=== PATIENT | male | born 1975 | race Caucasian/White ===

== ENCOUNTER 2016-08-24 11:09 | Inpatient (IN) | payer BC ==
[~2016-08-24] VITALS: Ht 170.1 cm; Wt 73.1 kg
[~2016-08-24 11:09] MED LIST: DOXYCYCLINE MO100 MG PO; MEDROL DOSEPAK4 MG PO; NAPROSYN500 MG PO; TRAMADOL HCL50 MG PO; VIBRAMYCIN100 MG PO
[2016-08-24 11:25] VITALS: BP 138/93
[2016-08-24] MEDS ORDERED: IMODIUM A-D2 M2 PO (11:25)
[2016-08-24 11:51] LABS: BASO # 0.1 10*3/uL (0.0-0.1); BASO % 0.6 % (0.0-1.0); EOS # 0.3 10*3/uL (0.0-0.4); EOS % 2.9 % (1.0-4.0); HEMATOCRIT 47.3 % (42.0-52.0); HEMOGLOBIN 16.8 g/dl (14.0-18.0); LYMPH % 9.8 % (27.0-41.0); MEAN CELL VOLUME 92.6 fl (80.0-94.0); MEAN CORPUSCULAR HGB 32.9 pg (27.0-31.0); MEAN CORPUSCULAR HGB CONC 35.5 g/dl (33.0-37.0); MEAN PLATELET VOLUME 8.4 fl (9.6-12.3); MONO # 0.8 10*3/uL (0.1-1.0); MONO % 7.7 % (3.0-9.0); NEUT # 7.8 10*3/uL (2.3-7.9); NEUT % 78.6 % (47.0-73.0); PLATELET COUNT AUTOMATED 298 10*3/uL (130-400); RED BLOOD COUNT 5.11 10*6/uL (4.50-5.90); WHITE BLOOD COUNT 9.9 10*3/uL (4.8-10.8)
[2016-08-24 12:05] LABS: PROTHROMBIN TIME 10.1 SECONDS (9.0-12.4)
[2016-08-24 12:07] LABS: ALKALINE PHOSPHATASE 84 U/L (45-117); BILIRUBIN, TOTAL 0.6 mg/dl (0.2-1.0); BUN 8 mg/dl (7-24); C-REACTIVE PROTEIN 1.77 MG/DL (0-0.3); CARBON DIOXIDE 24 mmol/L (21-32); CHLORIDE 105 mmol/L (98-107); CPK 77 U/L (39-308); EST GLOM FILT AFRICAN AMERICAN > 60 ml/min; GLUCOSE 110 mg/dL (65-99); MAGNESIUM 2.2 mg/dL (1.5-2.1); POTASSIUM 4.2 mmol/L (3.5-5.1); SGOT/AST 25 IU/L (3-35); SGPT/ALT 33 U/L (12-78); SODIUM 141 mmol/L (136-145); TOTAL PROTEIN 7.4 gm/dL (6.4-8.2); TROPONIN I < 0.015 ng/ml (<0.045)
[2016-08-24 12:54] VITALS: BP 127/76
[2016-08-24 12:57] LABS: BILIRUBIN NEGATIVE (NEGATIVE); BLOOD NEGATIVE (NEGATIVE); CLARITY CLEAR (CLEAR); COLOR YELLOW (YELLOW); GLUCOSE NEGATIVE (NEGATIVE); KETONE NEGATIVE (NEGATIVE); LEUKO ESTERASE NEGATIVE (NEGATIVE); NITRITE NEGATIVE (NEGATIVE); PROTEIN NEGATIVE (NEGATIVE); UROBILINOGEN 0.2 E.U./dl (0.2-1.0)
[2016-08-24 13:04] LABS: BACTERIA TRACE; EPITHELIAL CELLS 0-2; MUCOUS 1+; URINE REFLEX COMMENT NO (NO); WBC 0-2 wbc/hpf (0-5)
[2016-08-24 13:56] VITALS: BP 120/84
[2016-08-24 16:00] VITALS: BP 145/95
[2016-08-24 20:00] VITALS: BP 135/86
[2016-08-25] VITALS: BP 133/89
[2016-08-25 06:14] LABS: BASO # 0.1 10*3/uL (0.0-0.1); BASO % 0.8 % (0.0-1.0); EOS # 0.4 10*3/uL (0.0-0.4); EOS % 5.7 % (1.0-4.0); LYMPH # 1.6 10*3/uL (1.3-4.4); MEAN CELL VOLUME 94.9 fl (80.0-94.0); MEAN CORPUSCULAR HGB 32.6 pg (27.0-31.0); MEAN CORPUSCULAR HGB CONC 34.3 g/dl (33.0-37.0); MEAN PLATELET VOLUME 8.6 fl (9.6-12.3); MONO # 0.7 10*3/uL (0.1-1.0); MONO % 10.6 % (3.0-9.0); NEUT # 3.7 10*3/uL (2.3-7.9); NEUT % 57.4 % (47.0-73.0); PLATELET COUNT AUTOMATED 248 10*3/uL (130-400); RED BLOOD COUNT 4.33 10*6/uL (4.50-5.90); WHITE BLOOD COUNT 6.5 10*3/uL (4.8-10.8)
[2016-08-25 06:19] LABS: HEMATOCRIT 41.1 % (42.0-52.0); HEMOGLOBIN 14.1 g/dl (14.0-18.0)
[2016-08-25 06:29] LABS: HEMOGLOBIN A1c 5.1 % (4.8-5.6)
[2016-08-25 06:44] LABS: ALBUMIN 3.1 gm/dl (3.1-4.5); BILIRUBIN, TOTAL 0.8 mg/dl (0.2-1.0); BUN 7 mg/dl (7-24); CARBON DIOXIDE 27 mmol/L (21-32); CHLORIDE 108 mmol/L (98-107); CHOLESTEROL 149 mg/dL (<200); EST GLOM FILT AFRICAN AMERICAN > 60 ml/min; GLUCOSE 85 mg/dL (65-99); MAGNESIUM 2.1 mg/dL (1.5-2.1); PHOSPHOROUS 2.8 mg/dL (2.5-4.9); POTASSIUM 3.8 mmol/L (3.5-5.1); SGOT/AST 19 IU/L (3-35); SGPT/ALT 24 U/L (12-78); SODIUM 143 mmol/L (136-145); TOTAL PROTEIN 5.8 gm/dL (6.4-8.2); TRIGLYCERIDES 145 mg/dl (<150); VLDL CHOLESTEROL 29 mg/dL (6-40)
[2016-08-25 06:45] LABS: PROTHROMBIN TIME 10.1 SECONDS (9.0-12.4)
[2016-08-25 06:51] LABS: ALKALINE PHOSPHATASE 68 U/L (45-117); FREE T4 0.82 ng/dl (0.76-1.46); HDL CHOLESTEROL 56 mg/dl (40-60); LDL CHOLESTEROL 64 mg/dL (9-159)
[2016-08-25 07:31] LABS: VITAMIN D, 25-HYDROXY 7.5 ng/mL (30-100)
[2016-08-25 07:32] LABS: FOLIC ACID 6.39 ng/mL (>5.38)
[2016-08-25 08:00] VITALS: BP 145/87
[2016-08-25] MEDS ORDERED: CIPRO500 MG PO (10:29)
[2016-08-25] MEDS ORDERED: ACIDOPHILUS1 EAC3 PO (10:29)
[2016-08-25] MEDS ORDERED: D-1000 185 MG-11 TAB PO (10:29)
[2016-08-25] MEDS ORDERED: FLAGYL500 MG PO (10:29)
[2016-08-25 12:00] VITALS: BP 138/85
== END 2016-08-25 12:49 | disposition home or self-care (01) | DRG 872 ==
LOC: ED 11:09 → EDHOLD 13:01 → 4E 13:01
PROVIDERS: Family Medicine; Student in an Organized Health Care Education/Training Program
DX: A41.9 Sepsis, unspecified organism (principal); K57.92 Diverticulitis of intestine, part unspecified, without perforation or abscess without bleeding; F17.210 Nicotine dependence, cigarettes, uncomplicated; F10.20 Alcohol dependence, uncomplicated; Z82.49 Family history of ischemic heart disease and other diseases of the circulatory system; Z88.2 Allergy status to sulfonamides; Z88.6 Allergy status to analgesic agent; Z88.8 Allergy status to other drugs, medicaments and biological substances; Z80.0 Family history of malignant neoplasm of digestive organs; Z82.3 Family history of stroke; Z79.899 Other long term (current) drug therapy; Z81.8 Family history of other mental and behavioral disorders

== ENCOUNTER 2017-02-27 10:43 | Inpatient (IN) | payer BC ==
[~2017-02-27] VITALS: Ht 170.1 cm; Wt 70.9 kg
[~2017-02-27 10:43] MED LIST changes: +ACIDOPHILUS1 EAC3 PO; +CIPRO500 MG PO; +D-1000 185 MG-11 TAB PO; +FLAGYL500 MG PO; +IMODIUM A-D2 M2 PO
[2017-02-27 10:48] VITALS: BP 130/75
[2017-02-27 11:16] LABS: BASO % 0.3 % (0.0-1.0); EOS # 0.2 10*3/uL (0.0-0.4); EOS % 2.3 % (1.0-4.0); HEMATOCRIT 46.1 % (42.0-52.0); HEMOGLOBIN 16.2 g/dl (14.0-18.0); LYMPH # 1.1 10*3/uL (1.3-4.4); LYMPH % 11.6 % (27.0-41.0); MEAN CELL VOLUME 91.8 fl (80.0-94.0); MEAN CORPUSCULAR HGB 32.3 pg (27.0-31.0); MEAN CORPUSCULAR HGB CONC 35.1 g/dl (33.0-37.0); MEAN PLATELET VOLUME 8.2 fl (9.6-12.3); MONO # 0.8 10*3/uL (0.1-1.0); NEUT # 7.3 10*3/uL (2.3-7.9); NEUT % 77.4 % (47.0-73.0); PLATELET COUNT AUTOMATED 320 10*3/uL (130-400); RED BLOOD COUNT 5.02 10*6/uL (4.50-5.90); RED CELL DISTRI WIDTH 12.3 % (0-14.5); WHITE BLOOD COUNT 9.5 10*3/uL (4.8-10.8)
--- NOTE | 2017-02-27 11:27 | NUR ---
PT VOICED PAIN RELIEF FROM [facility].
[2017-02-27 11:31] LABS: ALBUMIN 4.3 gm/dl (3.1-4.5); ALKALINE PHOSPHATASE 91 U/L (45-117); BUN 9 mg/dl (7-24); CHLORIDE 101 mmol/L (98-107); CREATININE 0.87 mg/dL (0.70-1.30); POTASSIUM 3.8 mmol/L (3.5-5.1); SGOT/AST 21 IU/L (3-35); SGPT/ALT 32 U/L (12-78); SODIUM 137 mmol/L (136-145); TOTAL PROTEIN 7.9 gm/dL (6.4-8.2)
[2017-02-27 13:40] VITALS: BP 128/80
[2017-02-27 14:30] VITALS: BP 128/80
--- NOTE | 2017-02-27 14:30 | NUR ---
Time: 1429 A 41 year old MALE admitted to 4E under services of CINDA ARIAS DO. Pt. arrived via wheel chair from ER. Chief complaint: LEFT LOWER QUADRANT ABDOMINAL PAIN SINCE EATING CORN LAST NIGHT (HX OF DIVERTICULOSIS). ADINA POP
[2017-02-27] MEDS ORDERED: ACIDOPHILUS LA1 EACH PO (14:45)
[2017-02-27] MEDS ORDERED: GUAIFENESIN600 MG PO (14:46)
--- NOTE | 2017-02-27 14:46 | NUR ---
PATIENT REPORTS TAKING TWO HOME OTC MEDS; MED REC UPDATED PER HIS INFORMATION PROVIDED.
[2017-02-27 16:00] VITALS: BP 122/76
[2017-02-27 20:00] VITALS: BP 118/77
--- NOTE | 2017-02-27 20:16 | NUR ---
PATIENT RESTING IN BED WITH NO S/S OF DISTRESS. WATCHING TV. CANDY ON BEDSIDE TABLE. ENCOURAGED TO ONLY HAVE LIQUIDS PER DR ORDER. BED IN LOWEST POSITION, CALL LIGHT IN REACH
[2017-02-28] VITALS: BP 132/84
[2017-02-28 06:57] LABS: BASO % 0.6 % (0.0-1.0); EOS # 0.3 10*3/uL (0.0-0.4); EOS % 6.1 % (1.0-4.0); LYMPH # 1.2 10*3/uL (1.3-4.4); LYMPH % 22.8 % (27.0-41.0); MEAN CELL VOLUME 93.1 fl (80.0-94.0); MEAN CORPUSCULAR HGB 32.4 pg (27.0-31.0); MEAN CORPUSCULAR HGB CONC 34.8 g/dl (33.0-37.0); MEAN PLATELET VOLUME 8.3 fl (9.6-12.3); MONO # 0.5 10*3/uL (0.1-1.0); MONO % 10.1 % (3.0-9.0); NEUT # 3.2 10*3/uL (2.3-7.9); NEUT % 59.8 % (47.0-73.0); PLATELET COUNT AUTOMATED 233 10*3/uL (130-400); RED BLOOD COUNT 4.04 10*6/uL (4.50-5.90); RED CELL DISTRI WIDTH 12.2 % (0-14.5); WHITE BLOOD COUNT 5.3 10*3/uL (4.8-10.8)
[2017-02-28 06:58] LABS: HEMATOCRIT 37.6 % (42.0-52.0); HEMOGLOBIN 13.1 g/dl (14.0-18.0)
[2017-02-28 07:07] LABS: ACT PARTIAL THROMBO TIME 29.5 SECONDS (20.8-31.5); INTERNATIONAL NORM RATIO 0.9 (2.0-3.5)
[2017-02-28 07:41] LABS: ALBUMIN 2.9 gm/dl (3.1-4.5); ALKALINE PHOSPHATASE 69 U/L (45-117); BUN 6 mg/dl (7-24); CHLORIDE 108 mmol/L (98-107); CREATININE 0.82 mg/dL (0.70-1.30); FREE T4 0.96 ng/dl (0.76-1.46); MAGNESIUM 2.2 mg/dL (1.5-2.1); PHOSPHOROUS 2.6 mg/dL (2.5-4.9); POTASSIUM 3.5 mmol/L (3.5-5.1); SGOT/AST 14 IU/L (3-35); SGPT/ALT 27 U/L (12-78); SODIUM 140 mmol/L (136-145); TOTAL PROTEIN 6.1 gm/dL (6.4-8.2)
[2017-02-28 08:00] VITALS: BP 122/72
--- NOTE | 2017-02-28 08:33 | NUR ---
Shift chart check completed.
[2017-02-28 08:41] LABS: VITAMIN D, 25-HYDROXY 18.2 ng/mL (30-100)
[2017-02-28] MEDS ORDERED: FLAGYL500 MG PO (11:44)
[2017-02-28] MEDS ORDERED: B12,B-12,B 12500 MC1 PO (11:44)
[2017-02-28] MEDS ORDERED: VITAMIN D31000 UNI1 PO (11:44)
[2017-02-28] MEDS ORDERED: CIPRO500 MG PO (11:44)
--- NOTE | 2017-02-28 12:10 | NUR ---
Discharge instructions reviewed with patient/family. Patient receptive and verbalizes understanding. Follow-up care understood. Written instructions given to patient/family. pt understands rx sent to pharmacy and to [facility] pick[facility]. no questioins at this time GLENDA PATEL
== END 2017-02-28 12:10 | disposition home or self-care (01) | DRG 872 ==
LOC: ED 10:43 → EDHOLD 12:23 → 4E 12:45
PROVIDERS: Internal Medicine; Nurse Practitioner Family; ADMIT Internal Medicine
DX: A41.9 Sepsis, unspecified organism (principal); K57.92 Diverticulitis of intestine, part unspecified, without perforation or abscess without bleeding; K76.9 Liver disease, unspecified; R03.0 Elevated blood-pressure reading, without diagnosis of hypertension; R00.0 Tachycardia, unspecified; R73.9 Hyperglycemia, unspecified; Z88.6 Allergy status to analgesic agent; F17.210 Nicotine dependence, cigarettes, uncomplicated; Z88.2 Allergy status to sulfonamides; Z88.8 Allergy status to other drugs, medicaments and biological substances; Z79.899 Other long term (current) drug therapy; Z82.49 Family history of ischemic heart disease and other diseases of the circulatory system; Z81.8 Family history of other mental and behavioral disorders; Z80.8 Family history of malignant neoplasm of other organs or systems; Z82.3 Family history of stroke

== ENCOUNTER 2017-03-19 19:45 | Emergency (ER) | payer BC ==
[~2017-03-19] VITALS: Wt 68.0 kg
[~2017-03-19 19:45] MED LIST changes: +ACIDOPHILUS LA1 EACH PO; +B12,B-12,B 12500 MC1 PO; +GUAIFENESIN600 MG PO; +VITAMIN D31000 UNI1 PO
[2017-03-19 19:49] VITALS: BP 129/85
[2017-03-19 20:12] LABS: BILIRUBIN 1+ (NEGATIVE); BLOOD 1+ (NEGATIVE); CLARITY CLEAR (CLEAR); COLOR YELLOW (YELLOW); GLUCOSE NEGATIVE (NEGATIVE); KETONE NEGATIVE (NEGATIVE); LEUKO ESTERASE NEGATIVE (NEGATIVE); NITRITE NEGATIVE (NEGATIVE); PH 5.5 (5.0-9.0); SPECIFIC GRAVITY >= 1.030 (1.005-1.030); UROBILINOGEN 0.2 E.U./dl (0.2-1.0)
[2017-03-19 20:24] LABS: BACTERIA TRACE; EPITHELIAL CELLS 0-2; MUCOUS 4+
[2017-03-19 20:27] LABS: BASO % 0.3 % (0.0-1.0); EOS % 0.2 % (1.0-4.0); HEMATOCRIT 46.9 % (42.0-52.0); HEMOGLOBIN 16.7 g/dl (14.0-18.0); LYMPH # 1.1 10*3/uL (1.3-4.4); LYMPH % 11.8 % (27.0-41.0); MEAN CELL VOLUME 89.7 fl (80.0-94.0); MEAN CORPUSCULAR HGB 31.9 pg (27.0-31.0); MEAN CORPUSCULAR HGB CONC 35.6 g/dl (33.0-37.0); MEAN PLATELET VOLUME 8.5 fl (9.6-12.3); MONO # 0.8 10*3/uL (0.1-1.0); MONO % 8.8 % (3.0-9.0); NEUT # 7.2 10*3/uL (2.3-7.9); NEUT % 78.7 % (47.0-73.0); PLATELET COUNT AUTOMATED 317 10*3/uL (130-400); RED BLOOD COUNT 5.23 10*6/uL (4.50-5.90); RED CELL DISTRI WIDTH 11.9 % (0-14.5); WHITE BLOOD COUNT 9.2 10*3/uL (4.8-10.8)
[2017-03-19 20:42] LABS: ALBUMIN 3.5 gm/dl (3.1-4.5); ALKALINE PHOSPHATASE 58 U/L (45-117); BUN 8 mg/dl (7-24); CHLORIDE 98 mmol/L (98-107); CREATININE 0.73 mg/dL (0.70-1.30); POTASSIUM 2.7 mmol/L (3.5-5.1); SGOT/AST 16 IU/L (3-35); SGPT/ALT 16 U/L (12-78); SODIUM 134 mmol/L (136-145); TOTAL PROTEIN 7.6 gm/dL (6.4-8.2)
[2017-03-19] MEDS ORDERED: Zofran4 MG PO (22:00)
[2017-03-19] MEDS ORDERED: PEPCID20 MG PO (22:00)
== END 2017-03-19 22:04 | disposition home or self-care (01) ==
LOC: ED 19:45
PROVIDERS: Emergency Medicine; Physician Assistant
DX: K52.9 Noninfective gastroenteritis and colitis, unspecified (principal); R10.84 Generalized abdominal pain; F17.200 Nicotine dependence, unspecified, uncomplicated; Z79.899 Other long term (current) drug therapy; Z88.5 Allergy status to narcotic agent; Z88.1 Allergy status to other antibiotic agents; Z88.8 Allergy status to other drugs, medicaments and biological substances

== ENCOUNTER → 2019-06-02 | Outpatient (CLI) | payer BC ==
[~2019-06-02] MED LIST changes: +PEPCID20 MG PO; +Zofran4 MG PO
== END | disposition home or self-care (01) ==
LOC: US 09:22
DX: K40.90 Unilateral inguinal hernia, without obstruction or gangrene, not specified as recurrent (principal)

== ENCOUNTER → 2019-06-17 | Outpatient (CLI) | payer BC | END | disposition home or self-care (01) | LOC: CT 14:32 | DX: K76.9 Liver disease, unspecified (principal) ==

== ENCOUNTER → 2021-05-20 | Outpatient (CLI) | payer BC | END | disposition home or self-care (01) | LOC: RAD 11:23 | PROVIDERS: ATTEND Nurse Practitioner Family | DX: U07.1 COVID-19 (principal); J12.82 Pneumonia due to coronavirus disease 2019 ==

== ENCOUNTER → 2021-06-21 | Outpatient (CLI) | payer BC | END | disposition home or self-care (01) | LOC: RAD 11:52 | PROVIDERS: ATTEND Nurse Practitioner Family | DX: R05.9 Cough, unspecified (principal); I10 Essential (primary) hypertension; E53.8 Deficiency of other specified B group vitamins; Z72.0 Tobacco use ==

== ENCOUNTER → 2022-10-14 | Outpatient (CLI) | payer OTHER ==
[2022-10-14 11:15] LABS: BASO # 0.1 10*3/uL (0.0-0.1); EOS # 0.1 10*3/uL (0.0-0.4); EOS % 2.3 % (1.0-4.0); HEMATOCRIT 47.8 % (42.0-52.0); LYMPH # 1.1 10*3/uL (1.3-4.4); LYMPH % 22.7 % (27.0-41.0); MEAN CELL VOLUME 91.6 fl (80.0-94.0); MEAN CORPUSCULAR HGB 32.2 pg (27.0-31.0); MEAN CORPUSCULAR HGB CONC 35.1 g/dl (33.0-37.0); MEAN PLATELET VOLUME 7.9 fl (9.6-12.3); MONO # 0.4 10*3/uL (0.1-1.0); MONO % 8.4 % (3.0-9.0); NEUT # 3.2 10*3/uL (2.3-7.9); PLATELET COUNT AUTOMATED 306 10*3/uL (130-400); RED BLOOD COUNT 5.22 10*6/uL (4.50-5.90); RED CELL DISTRI WIDTH 11.9 % (0-14.5); WHITE BLOOD COUNT 4.9 10*3/uL (4.8-10.8)
[2022-10-14 11:52] LABS: ALKALINE PHOSPHATASE 101 U/L (46-116); BUN 11 mg/dl (9-23); CHLORIDE 98 mmol/L (98-107); CHOLESTEROL 147 mg/dL (<200); LDL CHOLESTEROL 35 mg/dL (9-159); POTASSIUM 3.2 mmol/L (3.4-5.1); SGPT/ALT 34 U/L (10-49); THYROID STIM HORMONE (HS) 1.369 uIU/ml (0.550-4.780); TOTAL PROTEIN 7.1 gm/dL (6.0-8.0); TRIGLYCERIDES 273 mg/dl (<150)
== END | disposition home or self-care (01) ==
LOC: LAB 10:50
PROVIDERS: ATTEND Nurse Practitioner Family
DX: I10 Essential (primary) hypertension (principal); E53.8 Deficiency of other specified B group vitamins; R63.4 Abnormal weight loss; Z72.0 Tobacco use

== ENCOUNTER → 2022-11-18 | Outpatient (CLI) | payer OTHER ==
[~2022-11-18] MED LIST changes: +FENOFIBRATE130 M1 PO; +HYDROCHLOROTH12.5 M3 PO; +POTASSIUM99 M7 PO
== END | disposition home or self-care (01) ==
LOC: LAB 12:01
PROVIDERS: ATTEND Nurse Practitioner Family
DX: I10 Essential (primary) hypertension (principal); E87.6 Hypokalemia; R63.4 Abnormal weight loss; Z72.0 Tobacco use

== ENCOUNTER → 2022-11-24 | Day surgery (SDC) | payer OTHER ==
[~2022-11-24] VITALS: Ht 167.6 cm; Wt 74.8 kg
[2022-11-24 08:16] VITALS: BP 138/86
[2022-11-24 10:18] VITALS: BP 113/81
[2022-11-24 10:33] VITALS: BP 122/84
[2022-11-24 10:44] VITALS: BP 131/87
== END ==
LOC: SDC 11-20 09:30
PROVIDERS: ATTEND Surgery
DX: K57.30 Diverticulosis of large intestine without perforation or abscess without bleeding (principal); F17.210 Nicotine dependence, cigarettes, uncomplicated; Z98.890 Other specified postprocedural states; Z79.899 Other long term (current) drug therapy

== ENCOUNTER → 2023-02-19 | Outpatient (CLI) | payer OTHER ==
[2023-02-19 11:07] LABS: BASO % 0.8 % (0.0-1.0); EOS # 0.2 10*3/uL (0.0-0.4); EOS % 3.4 % (1.0-4.0); HEMATOCRIT 44.4 % (42.0-52.0); LYMPH % 21.4 % (27.0-41.0); MEAN CELL VOLUME 91.9 fl (80.0-94.0); MEAN CORPUSCULAR HGB 33.3 pg (27.0-31.0); MEAN CORPUSCULAR HGB CONC 36.3 g/dl (33.0-37.0); MONO # 0.5 10*3/uL (0.1-1.0); MONO % 10.1 % (3.0-9.0); NEUT % 63.9 % (47.0-73.0); PLATELET COUNT AUTOMATED 315 10*3/uL (130-400); RED BLOOD COUNT 4.83 10*6/uL (4.50-5.90); RED CELL DISTRI WIDTH 12.3 % (0-14.5); WHITE BLOOD COUNT 4.8 10*3/uL (4.8-10.8)
[2023-02-19 11:50] LABS: ALKALINE PHOSPHATASE 72 U/L (46-116); BUN 7 mg/dl (9-23); CHLORIDE 103 mmol/L (98-107); CHOLESTEROL 167 mg/dL (<200); LDL CHOLESTEROL 80 mg/dL (9-159); POTASSIUM 3.5 mmol/L (3.4-5.1); SGPT/ALT 23 U/L (10-49); TRIGLYCERIDES 125 mg/dl (<150)
== END | disposition home or self-care (01) ==
LOC: LAB 10:38
PROVIDERS: ATTEND Nurse Practitioner Family
DX: I10 Essential (primary) hypertension (principal); K76.9 Liver disease, unspecified; E78.1 Pure hyperglyceridemia

== ENCOUNTER 2024-04-29 11:10 | Inpatient (IN) | payer OTHER ==
[~2024-04-29] VITALS: Ht 170.1 cm; Wt 62.1 kg
[2024-04-29 11:29] VITALS: BP 144/92
[2024-04-29] MEDS ORDERED: SODIUM CHLORIDE 0.9% 1,000 ML IV ONE (11:30)
[2024-04-29] MEDS ORDERED: NICODERM CQ1 EAC2 TD (11:31)
[2024-04-29] MEDS ORDERED: SODIUM CHLORIDE 0.9% 100 ML BAG IV ONE (11:35)
[2024-04-29] MEDS ORDERED: IOHEXOL 350 MG/ML 100 ML VIAL IV ONE (11:35)
[2024-04-29 11:45] LABS: BASO # 0.1 10*3/uL (0.0-0.1); EOS # 0.3 10*3/uL (0.0-0.4); EOS % 5.6 % (1.0-4.0); HEMATOCRIT 46.3 % (42.0-52.0); MEAN CORPUSCULAR HGB 32.5 pg (27.0-31.0); MEAN PLATELET VOLUME 7.9 fl (9.6-12.3); MONO # 0.6 10*3/uL (0.1-1.0); MONO % 11.8 % (3.0-9.0); NEUT # 2.7 10*3/uL (2.3-7.9); NEUT % 54.1 % (47.0-73.0); PLATELET COUNT AUTOMATED 313 10*3/uL (130-400); RED BLOOD COUNT 4.98 10*6/uL (4.50-5.90); RED CELL DISTRI WIDTH 11.8 % (0-14.5)
[2024-04-29 11:56] LABS: ACT PARTIAL THROMBO TIME 26.9 SECONDS (20.0-32.1)
[2024-04-29 12:05] LABS: BUN 9 mg/dl (9-23); CHLORIDE 98 mmol/L (98-107); POTASSIUM 3.2 mmol/L (3.4-5.1)
[2024-04-29] MEDS ORDERED: Clopidogrel Hydrogen Sulfate 75 MG TAB PO ONE ×2 (13:10→15:20)
[2024-04-29] MEDS ORDERED: POTASSIUM CHLORIDE 20 MEQ TAB PO ONE (13:10)
[2024-04-29] MEDS ORDERED: ASPIRIN, CHEWABLE 81 MG TAB PO ONE (13:10)
[2024-04-29 13:53] VITALS: BP 124/71
[2024-04-29] MEDS ORDERED: ACETAMINOPHEN 325 MG TAB PO PRN (15:15)
[2024-04-29] MEDS ORDERED: Ondansetron Hydrochloride 4 MG/2 ML VIAL IV PRN (15:15)
[2024-04-29] MEDS ORDERED: BISACODYL 5 MG TAB PO PRN (15:15)
[2024-04-29 17:00] VITALS: BP 122/74
[2024-04-29] MEDS ORDERED: LIPITOR80 MG PO (17:02)
[2024-04-29] MEDS ORDERED: PLAVIX75 M1 PO (17:02)
[2024-04-29] MEDS ORDERED: ASPIRIN ADULT L81 M1 PO (17:02)
[2024-04-30] MEDS ORDERED: ATORVASTATIN CALCIUM 80 MG TAB PO SCH (10:00)
[2024-04-30] MEDS ORDERED: ASPIRIN ENTERIC COATED 81 MG TAB PO SCH (10:00)
[2024-04-30] MEDS ORDERED: Enoxaparin Sodium 40 MG/0.4 ML SYR SC SCH (10:00)
== END 2024-04-29 17:07 | disposition left against medical advice (07) | DRG 641 ==
LOC: ED 11:10 → EDHOLD 13:13
PROVIDERS: Emergency Medicine; ADMIT Internal Medicine; ATTEND Internal Medicine
DX: E87.6 Hypokalemia (principal); R29.90 Unspecified symptoms and signs involving the nervous system; R03.0 Elevated blood-pressure reading, without diagnosis of hypertension; R73.9 Hyperglycemia, unspecified; Z53.29 Procedure and treatment not carried out because of patient's decision for other reasons; Z88.2 Allergy status to sulfonamides; Z88.5 Allergy status to narcotic agent; Z88.8 Allergy status to other drugs, medicaments and biological substances; Z79.82 Long term (current) use of aspirin; Z79.899 Other long term (current) drug therapy; Z82.49 Family history of ischemic heart disease and other diseases of the circulatory system; Z86.73 Personal history of transient ischemic attack (TIA), and cerebral infarction without residual deficits

== ENCOUNTER → 2024-07-01 | Outpatient (CLI) | payer OTHER ==
[~2024-07-01] MED LIST changes: +ASPIRIN ADULT L81 M1 PO; +LIPITOR80 MG PO; +NICODERM CQ1 EAC2 TD; +PLAVIX75 M1 PO
[2024-07-01 17:50] LABS: BASO # 0.1 10*3/uL (0.0-0.1); BASO % 1.9 % (0.0-1.0); EOS # 0.4 10*3/uL (0.0-0.4); EOS % 11.6 % (1.0-4.0); HEMATOCRIT 44.3 % (42.0-52.0); MEAN CELL VOLUME 94.1 fl (80.0-94.0); MEAN CORPUSCULAR HGB 32.3 pg (27.0-31.0); MEAN CORPUSCULAR HGB CONC 34.3 g/dl (33.0-37.0); MEAN PLATELET VOLUME 8.1 fl (9.6-12.3); MONO # 0.5 10*3/uL (0.1-1.0); MONO % 13.4 % (3.0-9.0); NEUT # 1.7 10*3/uL (2.3-7.9); NEUT % 44.6 % (47.0-73.0); PLATELET COUNT AUTOMATED 369 10*3/uL (130-400); RED BLOOD COUNT 4.71 10*6/uL (4.50-5.90); RED CELL DISTRI WIDTH 12.6 % (0-14.5); WHITE BLOOD COUNT 3.7 10*3/uL (4.8-10.8)
[2024-07-01 18:00] LABS: ALKALINE PHOSPHATASE 83 U/L (46-116); BUN 12 mg/dl (9-23); CHLORIDE 100 mmol/L (98-107); CHOLESTEROL 128 mg/dL (<200); LDL CHOLESTEROL 24 mg/dL (9-159); POTASSIUM 3.9 mmol/L (3.4-5.1); SGPT/ALT 42 U/L (5-49); TOTAL PROTEIN 7.3 gm/dL (6.0-8.0); TRIGLYCERIDES 143 mg/dl (<150)
== END | disposition home or self-care (01) ==
LOC: ZRHCWE 15:33 → LAB 15:33
PROVIDERS: ATTEND Nurse Practitioner Family
DX: I63.9 Cerebral infarction, unspecified (principal); E78.1 Pure hyperglyceridemia; I10 Essential (primary) hypertension

== ENCOUNTER → 2024-09-14 | Outpatient (CLI) | payer OTHER ==
[2024-09-14 11:57] LABS: BASO % 0.8 % (0.0-1.0); EOS # 0.3 10*3/uL (0.0-0.4); EOS % 5.5 % (1.0-4.0); HEMATOCRIT 46.9 % (42.0-52.0); MEAN CELL VOLUME 91.8 fl (80.0-94.0); MEAN CORPUSCULAR HGB 32.1 pg (27.0-31.0); MEAN PLATELET VOLUME 8.6 fl (9.6-12.3); MONO # 0.5 10*3/uL (0.1-1.0); MONO % 11.2 % (3.0-9.0); NEUT % 64.3 % (47.0-73.0); PLATELET COUNT AUTOMATED 326 10*3/uL (130-400); RED BLOOD COUNT 5.11 10*6/uL (4.50-5.90); RED CELL DISTRI WIDTH 11.9 % (0-14.5); WHITE BLOOD COUNT 4.7 10*3/uL (4.8-10.8)
[2024-09-14 12:26] LABS: ALKALINE PHOSPHATASE 110 U/L (46-116); BUN 10 mg/dl (9-23); CHLORIDE 97 mmol/L (98-107); POTASSIUM 2.6 mmol/L (3.4-5.1); SGPT/ALT 42 U/L (5-49); TOTAL PROTEIN 7.9 gm/dL (6.0-8.0); VITAMIN D, 25-HYDROXY 15.5 ng/mL (30-100)
== END | disposition home or self-care (01) ==
LOC: LAB 10:01
PROVIDERS: ATTEND Nurse Practitioner Family
DX: I10 Essential (primary) hypertension (principal); I63.9 Cerebral infarction, unspecified; E78.1 Pure hyperglyceridemia; J01.00 Acute maxillary sinusitis, unspecified; R53.82 Chronic fatigue, unspecified; F17.210 Nicotine dependence, cigarettes, uncomplicated

== ENCOUNTER → 2024-09-22 | Outpatient (CLI) | payer OTHER ==
[2024-09-22 17:18] LABS: BUN 10 mg/dl (9-23); CHLORIDE 106 mmol/L (98-107); POTASSIUM 4.2 mmol/L (3.4-5.1)
== END | disposition home or self-care (01) ==
LOC: LAB 15:05
PROVIDERS: ATTEND Nurse Practitioner Family
DX: E87.6 Hypokalemia (principal)

== ENCOUNTER → 2025-01-27 | Outpatient (CLI) | payer OTHER ==
[2025-01-27 17:36] LABS: BASO # 0.1 10*3/uL (0.0-0.1); BASO % 1.5 % (0.0-1.0); EOS # 0.5 10*3/uL (0.0-0.4); EOS % 10.9 % (1.0-4.0); MEAN CELL VOLUME 93.5 fl (80.0-94.0); MEAN CORPUSCULAR HGB 31.4 pg (27.0-31.0); MEAN PLATELET VOLUME 8.3 fl (9.6-12.3); MONO # 0.5 10*3/uL (0.1-1.0); MONO % 10.0 % (3.0-9.0); NEUT # 2.5 10*3/uL (2.3-7.9); NEUT % 51.3 % (47.0-73.0); NUCLEATED RED BLOOD CELL 0.0 % (0.0-0.0); NUCLEATED RED BLOOD CELL 0.0 10*3/uL (0.0-0.0); PLATELET COUNT AUTOMATED 339 10*3/uL (130-400); RED CELL DISTRI WIDTH 12.4 % (0-14.5)
[2025-01-27 18:27] LABS: BUN 9 mg/dl (9-23); LDL CHOLESTEROL 25 mg/dL (9-159); SGPT/ALT 31 U/L (5-49); VITAMIN D, 25-HYDROXY 49.9 ng/mL (30-100)
== END | disposition home or self-care (01) ==
LOC: LAB 17:22
PROVIDERS: ATTEND Nurse Practitioner Family
DX: I63.9 Cerebral infarction, unspecified (principal); J30.2 Other seasonal allergic rhinitis; E55.9 Vitamin D deficiency, unspecified; R68.89 Other general symptoms and signs; F17.210 Nicotine dependence, cigarettes, uncomplicated

== ENCOUNTER → 2025-02-24 | Outpatient (CLI) | payer OTHER ==
[2025-02-24 18:12] LABS: BUN 10 mg/dl (9-23)
== END | disposition home or self-care (01) ==
LOC: LAB 12:34
PROVIDERS: ATTEND Nurse Practitioner Family
DX: E87.6 Hypokalemia (principal)

== ENCOUNTER → 2025-04-28 | Outpatient (CLI) | payer OTHER ==
[2025-04-28 14:21] LABS: BUN 11 mg/dl (9-23)
== END | disposition home or self-care (01) ==
LOC: RHCWE 13:36
PROVIDERS: ATTEND Nurse Practitioner Family
DX: E53.8 Deficiency of other specified B group vitamins (principal); E87.6 Hypokalemia; F41.9 Anxiety disorder, unspecified